=== PATIENT | male | born 1990 | race Caucasian/White ===

== ENCOUNTER 2019-09-21 17:44 | Emergency (ER) | payer SELFPAY ==
[2019-09-21 17:46] VITALS: BP 138/76; PULSE 94; RESP 15; TEMP 36; O2SAT 97; BMI 28.1
--- NOTE | 2019-09-21 19:10 | ED.VIS.UPPEX ---
History of Present Illness Chief Complaint: Laceration Informant: Patient Occurred: Today, Hours - 1 Mechanism/Context: Injury Context: Sudden Onset Timing: Continuous Quality of Pain: - - sore Current Severity: Moderate Maximum Severity: Moderate Worsened by: Movement, palpation Relieved by: Leaving alone Associated Symptoms: Negative for: Parasthesia, Weakness, Loss of Funtion Narrative: Accidentally cut his left thumb with a circular saw. He was cutting wood. [id number]. Tetanus Immunization: Unknown Past Medical History - Allergies and Home Meds Allergies/Adverse Reactions: Allergies No Known Allergies Allergy (Verified 09/21/19 17:45) Primary Care Physician: NOT,DEFINED [NON-STAFF] - Past Medical History: None Smoking Status: Never smoker Review of Systems Musculoskeletal: Reports: Extremity Pain Skin: Reports: Wounds Neurological: Denies: Headache, Weakness, Numbness Physical Exam Vital Signs/Narrative: Vital Signs Temp Pulse Resp BP Pulse Ox 09/21/19 17:46 96.8 F L 94 15 138/76 H 97 General: Well nourished, Well developed, - - NAD Head: Normocephalic, Atraumatic Extremeties: Extensor and FDS intact left thumb. Distal phalanx tender. Skin: Trauma - 4 cm clean-appearing, jagged laceration from the dorsum around the radial aspect of the left thumb toward the volar aspect. No nail involvement, this is just proximal to the nail, about 1 cm. Nailbed intact. Neurological: Alert, Oriented x3, Cranial nerves II-XII grossly intact, Normal Strength, Normal Sensation, Normal Gait Psychological: Normal affect, Normal Mood Diagnostic/Tx/Re-eval Clinical Impression(s) from Imaging Studies Finger X-Ray 09/21/19 19:15 IMPRESSION: Fracture distal phalanx Electronically Signed: Edson Weathers MD at 20:17 EDT , Service support , - Medical Decision Making As above, x-ray shows nondisplaced fracture, it appears to go through only part of the bone, the radial cortex of the distal phalanx. There does not appear to be intra-articular involvement. Technically this is an open fracture so antibiotics are indicated. It did not appear to be grossly contaminated. It was irrigated thoroughly under pressure after digital block, and a turnicot was placed to control blood flow during the repair. The skin edges were very jagged, there was superficial tissue loss, but overall the dermis appears to be there and intact, it was brought together and he will follow-up with orthopedics. Prescribed antibiotics to prophylax against infection. Procedures - Lacerations left thumb Length: 4 cm Depth: Sub Q Shape: Stellate Prep: Sterile Conditions, Chlorhexadine Laceration repair: Digital block, Irrigated, Lidocaine - 2%, 7cc, Skin sutures Irrigated (ml): 120 Number of Sutures/[place]: 6 Suture Information: Ethilon, Simple, 4-0 - Upper Extremity Splints Upper Extremity Splint: Alumifoam Splint Fabrication: Fabricated Location: Left - thumb; NVID after placement ED Disposition - Plan for ED Patient: Disposition: Home or Assisted Living Diagnosis: Open fracture of distal phalanx of left thumb, Laceration of left thumb without foreign body without damage to nail Instructions: ED Fx Hand Open, ED Laceration Hand Prescriptions: Cephalexin [Keflex] 500 mg PO TID #21 cap Prescription Printed Referrals: Reba Russo DO [STAFF PHYSICIAN] - 1-2 Weeks (call for appt)
--- NOTE | 2019-09-21 19:15 | RAD_ITS ---
STUDY: X-RAY - LEFT HAND, ATTENTION FIRST FINGER REASON FOR EXAM: Male, 28 years old. left thumb cut by saw TECHNIQUE: view(s) of the finger were obtained. COMPARISON: None. FINDINGS: Normal metacarpal head. Normal metacarpophalangeal joint. Normal proximal phalanx. Normal middle phalanx. Comminuted fracture distal phalanx thumb. Normal proximal interphalangeal joint. Normal distal interphalangeal joint. RAD/Finger(s) Min 2 Views IMPRESSION: Fracture distal phalanx Electronically Signed: Edson Weathers MD at 20:17 EDT , Service support ,
[2019-09-21] MEDS: Diphth,Pertuss(Acell),Tet Vac 0.5 ML Vial IM (19:25)
[2019-09-21] MEDS: Cephalexin 250 MG Capsule 500 MG PO (22:37)
[2019-09-21 22:45] VITALS: BP 144/71; PULSE 78; RESP 18; O2SAT 99
== END 2019-09-21 22:45 | disposition home or self-care (01) ==
PROVIDERS: Emergency Provider Emergency Medicine
DX: S62.522B Displaced fracture of distal phalanx of left thumb, initial encounter for open fracture (principal); W29.8XXA Contact with other powered hand tools and household machinery, initial encounter; Y93.89 Activity, other specified; Y92.89 Other specified places as the place of occurrence of the external cause; Y99.8 Other external cause status
CPT/HCPCS: 12002; 73140; 90715; 99284